=== PATIENT | male | born 1965 | race African-American/Black ===

== ENCOUNTER 2019-02-26 13:29 | Outpatient (CLI) | payer OTHER ==
--- NOTE | 2019-02-26 16:59 | ULT ---
SOFT TISSUE ULTRASOUND OF THE PERINEUM: HISTORY: Palpable area just superior to the base of the penis and soreness. TECHNIQUE: Multiplanar, dobson scale, and color Doppler images were obtained in a limited ultrasound of the perine um. FINDINGS: Slightly prominent vessels are seen just superior to the base of the penis. No focal fluid collectio n or mass is seen. IMPRESSION: No significant abnormality. POS: [facility]
== END 2019-02-26 13:30 | disposition home or self-care (01) ==
LOC: ULT 13:29
PROVIDERS: ATTEND Nurse Practitioner Family
DX: N48.89 Other specified disorders of penis (principal)
CPT/HCPCS: 76999

== ENCOUNTER 2022-08-12 09:26 | Outpatient (CLI) | payer BC | END 2022-08-12 09:27 | disposition home or self-care (01) | LOC: BICRAD 09:26 | PROVIDERS: ATTEND Nurse Practitioner Family | DX: M25.562 Pain in left knee (principal); M25.462 Effusion, left knee ==

== ENCOUNTER 2022-08-23 14:42 | Outpatient (CLI) | payer BC | END 2022-08-23 14:43 | disposition home or self-care (01) | LOC: BICCT 14:42 | PROVIDERS: ATTEND Nurse Practitioner Family | DX: Z12.2 Encounter for screening for malignant neoplasm of respiratory organs (principal); F17.210 Nicotine dependence, cigarettes, uncomplicated; R91.1 Solitary pulmonary nodule; J43.9 Emphysema, unspecified | CPT/HCPCS: 71271 ==

== ENCOUNTER 2023-09-30 12:58 | Outpatient (CLI) | payer BC | END 2023-09-30 12:59 | disposition home or self-care (01) | LOC: CT 12:58 | PROVIDERS: ATTEND Nurse Practitioner Family | DX: Z12.2 Encounter for screening for malignant neoplasm of respiratory organs (principal); F17.218 Nicotine dependence, cigarettes, with other nicotine-induced disorders; J43.2 Centrilobular emphysema | CPT/HCPCS: 71271 ==